=== PATIENT | female | born 1975 | race Caucasian/White ===

== ENCOUNTER 2018-05-08 01:09 | Emergency (ER) | payer BC ==
[~2018-05-08] VITALS: Ht 175.3 cm; Wt 113.4 kg
[2018-05-08 01:11] VITALS: BP_SYST 157
[2018-05-08] MEDS ORDERED: FAMOTIDINE 20 MG TABLET PO ONE (02:30)
[2018-05-08] MEDS ORDERED: DEXAMETHASONE SOD PHOSPHATE 10 MG/ML VIAL IM ONE (02:45)
[2018-05-08 03:25] VITALS: BP_SYST 142
== END 2018-05-08 03:25 | disposition home or self-care (01) ==
LOC: SED 01:09
DX: K11.20 Sialoadenitis, unspecified (principal); L29.8 Other pruritus; K21.9 Gastro-esophageal reflux disease without esophagitis
CPT/HCPCS: 96372; 99283; J1100

== ENCOUNTER 2019-11-06 21:19 | Emergency (ER) | payer BC, OTHER ==
[~2019-11-06] VITALS: Ht 175.3 cm; Wt 98.0 kg
[2019-11-06 21:29] VITALS: BP_SYST 175
[2019-11-06] MEDS ORDERED: LevALBUTEROL HCL 1.25 MG/0.5 ML *CONC.* VIAL.NEB (XOPENEX CONC.) INH ONE (22:00)
[2019-11-07 00:50] VITALS: BP_SYST 130
== END 2019-11-07 00:50 | disposition home or self-care (01) ==
LOC: SED 21:19
DX: J40 Bronchitis, not specified as acute or chronic (principal); R06.02 Shortness of breath; Z79.899 Other long term (current) drug therapy; Z90.710 Acquired absence of both cervix and uterus
CPT/HCPCS: 71046; 86710; 94640; 99284; J7612; 36415

== ENCOUNTER 2022-02-11 13:02 | Emergency (ER) | payer OTHER ==
[~2022-02-11] VITALS: Ht 175.3 cm; Wt 116.1 kg
[2022-02-11 14:49] VITALS: BP_SYST 126
[2022-02-11] MEDS ORDERED: LIDOCAINE/EPI 1% 1:100000 20 ML VIAL INJ ONE (20:04)
[2022-02-11] MEDS ORDERED: BUPIVACAINE /PF 0.25% 30 ML VIAL INJ ONE (21:18)
[2022-02-11] MEDS ORDERED: COCAINE 4% SOLUTION TP ONE (21:30)
[2022-02-11] MEDS ORDERED: KETAMINE HCL 500 MG/10 ML VIAL IVP ONE (21:45)
[2022-02-11 22:11] VITALS: BP_SYST 170
[2022-02-11] MEDS ORDERED: KETAMINE 30 MG/3 ML SYRINGE 30 MG in NS 100 ML IV ONE (22:15)
[2022-02-11] MEDS ORDERED: DIPHENHYDRAMINE INJ 50 MG/ML VIAL ONE (22:23)
[2022-02-11] MEDS ORDERED: DIPHENHYDRAMINE INJ 50 MG/ML VIAL IM ONE (22:30)
[2022-02-11] MEDS ORDERED: IBUP-1971 PO (23:34)
[2022-02-11] MEDS ORDERED: DOCU-144 PO (23:34)
[2022-02-11] MEDS ORDERED: HYDR-3917 PO (23:34)
[2022-02-12] MEDS ORDERED: DIPHENHYDRAMINE INJ 50 MG/ML VIAL IM ONE (00:15)
== END 2022-02-11 23:59 | disposition home or self-care (01) ==
LOC: SED 13:02
DX: K64.5 Perianal venous thrombosis (principal); K21.9 Gastro-esophageal reflux disease without esophagitis; R03.0 Elevated blood-pressure reading, without diagnosis of hypertension; Z79.899 Other long term (current) drug therapy
CPT/HCPCS: 46083; 96372; 99284; J1200; J3490